=== PATIENT | male | born 1980 | race Caucasian/White ===

== ENCOUNTER 2024-03-01 20:52 | Emergency (ER) | payer BC ==
[~2024-03-01] VITALS: Ht 193 cm; Wt 145.2 kg
[2024-03-01 21:09] VITALS: BP 151/87
[2024-03-01] MEDS ORDERED: Ketorolac Tromethamine 15mg Vial IM ONE (23:35)
[2024-03-01] MEDS ORDERED: HYDROcodone 5-APAP 325 TAB PO ONE (23:35)
[2024-03-01] MEDS ORDERED: RX Prepack 6 Tabs Oxycodone 5mg UD ONE (23:50)
== END 2024-03-01 23:58 | disposition home or self-care (01) ==
LOC: ER 20:52
DX: K04.7 Periapical abscess without sinus (principal); Z88.2 Allergy status to sulfonamides; Z88.1 Allergy status to other antibiotic agents
CPT/HCPCS: 41800; 96372-59; 99283-25; A9270; J1885